=== PATIENT | male | born 2000 | race Caucasian/White ===

== ENCOUNTER 2020-08-20 12:35 | Outpatient (REF) | payer OTHER, SELFPAY | END 2020-08-20 12:36 | disposition home or self-care (01) | LOC: HO.LAB 12:35 | PROVIDERS: PCP Nurse Practitioner Pediatrics; Visit Provider Internal Medicine | DX: Z20.828 Contact with and (suspected) exposure to other viral communicable diseases (principal) | CPT/HCPCS: C9803; U0003 ==

== ENCOUNTER 2020-08-27 15:21 | Outpatient (REF) | payer OTHER, SELFPAY | END 2020-08-27 15:22 | disposition home or self-care (01) | LOC: HO.LAB 15:21 | PROVIDERS: PCP Nurse Practitioner Pediatrics; Visit Provider Internal Medicine | DX: Z20.828 Contact with and (suspected) exposure to other viral communicable diseases (principal) | CPT/HCPCS: 36415; C9803; U0003 ==

== ENCOUNTER 2022-08-08 18:55 | Emergency (ER) | payer OTHER, SELFPAY ==
--- NOTE | ~2022-08-08 | XR_ITS ---
EXAMINATION: CHEST 2 VIEWS CLINICAL INFORMATION: sob/dizziness . COMPARISON: No recent pertinent prior studies are available for comparison. TECHNIQUE: PA and lateral views of the chest obtained. FINDINGS: The lungs are well expanded. No focal infiltrate, effusion, edema, or pneumothorax. Cardiac and mediastinal silhouettes are within normal limits for technique. No acute bony abnormality seen XR/XR chest 2V IMPRESSION: No evidence of acute disease
[2022-08-08 19:05] VITALS: BP 157/96; PULSE 110; RESP 18; TEMP 37.3; O2SAT 100; BMI 27.5
--- NOTE | 2022-08-08 19:06 | ED.SOB ---
HPI - SOB/Dyspnea General Chief Complaint: Dyspnea <MORE Gaming - Last Filed: 08/08/22 19:10> Stated Complaint: difficulty breathing <MORE Gaming - Last Filed: 08/08/22 19:10> Time Seen by Provider: 08/08/22 19:24 <MORE Gaming - Last Filed: 08/08/22 19:10> Source: patient <MORE De La Cruz Last Filed: 08/08/22 21:47> Mode of arrival: ambulatory <MORE De La Cruz - Last Filed: 08/08/22 21:47> Limitations: no limitations <MORE De La Cruz - Last Filed: 08/08/22 21:47> History of Present Illness HPI Narrative: Patient is a 21 year old assigned male at with a history of asthma presenting to the emergency department today with shortness of breathe and dizziness. Patient states that since yesterday, he has felt generally unwell with dizziness and shortness of breath. Patient denies any lightheadedness, abdominal pain, nausea, vomiting, fever, chills, blurry vision, double vision, loss of vision, chest pain, back pain, night sweats, pain with urination, increased urinary frequency, increased urinary urgency, blood in his urine or stool, syncope or a near syncopal episode, recent trauma or falls, bowel incontinence, bladder incontinence, bowel retention, bladder retention, or any other complaints at this time. <MORE De La Cruz - Last Filed: 08/08/22 21:47> MD elicited complaint: shortness of breath <MORE De La Cruz - Last Filed: 08/08/22 21:47> Pertinent past history: asthma <MORE De La Cruz - Last Filed: 08/08/22 21:47> Onset (ago): day(s) (1) <MORE De La Cruz - Last Filed: 08/08/22 21:47> Severity: mild <MORE De La Cruz Last Filed: 08/08/22 21:47> Exacerbating factors: nothing <MORE De La Cruz Last Filed: 08/08/22 21:47> Relieving factors: nothing <MORE De La Cruz - Last Filed: 08/08/22 21:47> Known history of: asthma <MORE De La Cruz Last Filed: 08/08/22 21:47> Associated symptoms: dizziness <MORE De La Cruz Last Filed: 08/08/22 21:47> Treatment prior to arrival: none <MORE De La Cruz Last Filed: 08/08/22 21:47> Related Data Home Medications: Previous Rx's Medication Instructions Recorded doxycycline hyclate 100 mg tablet 100 mg PO BID 7 days #14 tabs 08/08/22 prednisone 20 mg tablet 20 mg PO DAILY 7 days #7 tabs 08/08/22 <MORE Gaming Last Filed: 08/08/22 19:10> Allergies/Adverse Reactions: Allergies Allergy/AdvReac Type Severity Reaction Status Date / Time No Known Allergies Allergy Unverified 05/09/20 19:01 [No Known Allergies*] <MORE Gaming - Last Filed: 08/08/22 19:10> Review of Systems Constitutional: Constitutional: Reports no additional constitutional complaints, Denies chills, Denies fever(s) and Denies night sweats <MORE De La Cruz Last Filed: 08/08/22 21:47> Eyes: Eyes: Reports no additional eye complaints, Denies blurry vision, Denies change in vision, Denies diplopia, Denies eye discharge, Denies loss of vision and Denies eye pain <MORE De La Cruz Last Filed: 08/08/22 21:47> ENT: Denies dizziness <MORE De La Cruz Last Filed: 08/08/22 21:47> Cardiovascular: Cardiovascular: Reports no additional cardiovascular complaints, Denies chest pain, Denies lightheadedness, Denies Loss of Consciousness and Denies dyspnea <MORE De La Cruz - Last Filed: 08/08/22 21:47> Respiratory: Respiratory: Reports no additional respiratory complaints and Denies dyspnea <MORE De La Cruz Last Filed: 08/08/22 21:47> Gastrointestinal: Gastrointestinal: Reports no additional gastrointestinal complaints, Denies abdominal pain, Denies melena, Denies hematochezia, Denies change in bowel habits and Denies change in stool character <MORE De La Cruz Last Filed: 08/08/22 21:47> Genitourinary: Genitourinary: Reports no additional male genitourinary complaints, Denies hematuria, Denies oliguria, Denies difficulty urinating, Denies dysuria, Denies urinary frequency, Denies urinary hesitancy, Denies urinary incontinence and Denies urinary urgency <MORE De La Cruz - Last Filed: 08/08/22 21:47> Musculoskeletal: Musculoskeletal: Reports no additional musculoskeletal complaints, Denies numbness and Denies tingling <MORE De La Cruz - Last Filed: 08/08/22 21:47> Neurologic: Denies dizziness, Denies loss of vision, Denies numbness and Denies tingling <MORE De La Cruz - Last Filed: 08/08/22 21:47> Psychiatric: Psychiatric: Reports no additional psychiatric complaints <MORE De La Cruz - Last Filed: 08/08/22 21:47> Endocrine: Endocrine: Reports no additional endocrine complaints <MORE De La Cruz - Last Filed: 08/08/22 21:47> Hematologic/Lymphatic: Hematologic/Lymphatic: Reports no additional hematologic/lymphatic complaints <MORE De La Cruz - Last Filed: 08/08/22 21:47> Allergic/Immunologic: Allergic/Immunologic: Reports no additional allergic/immunologic complaints <MORE De La Cruz - Last Filed: 08/08/22 21:47> [facility] Past Medical History Attestation statement: The following information was validated with the patient. <MORE De La Cruz - Last Filed: 08/08/22 21:47> Source: old records reviewed and nursing notes reviewed <MORE De La Cruz - Last Filed: 08/08/22 21:47> Social History Social History: Social History Advance Directives: No Advance Directives Information Provided: No <MORE Gaming - Last Filed: 08/08/22 19:10> Physical Exam Vital Signs: Vital Signs: Last Vital Signs Temp 99.1 F 08/08/22 19:05 Pulse 110 H 08/08/22 19:05 Resp 18 08/08/22 19:05 BP 157/96 H 08/08/22 19:05 Pulse Ox 100 08/08/22 19:05 O2 Del Method 08/08/22 19:05 BMI result Body Mass Index 27.5 <MORE Gaming - Last Filed: 08/08/22 19:10> Vital Signs: Last Vital Signs Temp 99.1 F 08/08/22 19:05 Pulse 110 H 08/08/22 19:05 Resp 18 08/08/22 19:05 BP 157/96 H 08/08/22 19:05 Pulse Ox 100 08/08/22 19:05 O2 Del Method 08/08/22 19:05 BMI result Body Mass Index 27.5 <MORE De La Cruz - Last Filed: 08/08/22 21:47> Const: General: cooperative, no acute distress, alert and awake <MORE De La Cruz - Last Filed: 08/08/22 21:47> Nutritional Appearance: well nourished <MORE De La Cruz - Last Filed: 08/08/22 21:47> Orientation/consciousness: patient oriented x3 <MORE De La Cruz - Last Filed: 08/08/22 21:47> Limitations: no limitations <MORE De La Cruz - Last Filed: 08/08/22 21:47> HEENT: Head: Yes normal to inspection and Yes atraumatic <MORE De La Cruz - Last Filed: 08/08/22 21:47> Ears: hearing grossly normal bilaterally and external ears normal <MORE De La Cruz - Last Filed: 08/08/22 21:47> General nose exam: Normal external nose present, no nasal discharge noted and no epistaxis <MORE De La Cruz - Last Filed: 08/08/22 21:47> Face and sinus: Yes normal facial exam, No abrasion and No laceration <MORE De La Cruz - Last Filed: 08/08/22 21:47> Mouth: Normal oral and palatal mucosa present, no drooling and no muffled voice <MORE De La Cruz - Last Filed: 08/08/22 21:47> Eyes: General: appearance normal, both eyes and all related structures <MORE De La Cruz - Last Filed: 08/08/22 21:47> Periorbital: periorbital findings normal <MORE De La Cruz - Last Filed: 08/08/22 21:47> Eyelids: Yes eyelids normal <Serena Giraldo PA - Last Filed: 08/08/22 21:47> Conjunctivae: conjunctivae normal <Serena Giraldo, PA - Last Filed: 08/08/22 21:47> Pupils: Equal, round and reactive pupils present <Serena Giraldo PA - Last Filed: 08/08/22 21:47> EOM: EOMs intact bilaterally <Serena Giraldo PA - Last Filed: 08/08/22 21:47> Neck: Neck: Yes normal visual inspection, Yes full ROM and Yes no lymphadenopathy <Serena Giraldo PA - Last Filed: 08/08/22 21:47> Chest: Chest palpation & inspection: normal inspection of the chest <Serena Giraldo PA - Last Filed: 08/08/22 21:47> Resp: Effort & Inspection: normal respiratory effort and able to speak in complete sentences <Serena Giraldo PA - Last Filed: 08/08/22 21:47> Auscultation: wheezes throughout <Serena Giraldo PA - Last Filed: 08/08/22 21:47> Cardio: Rate: tachycardic <Serena Giraldo PA - Last Filed: 08/08/22 21:47> Rhythm: regular rhythm <Serena Giraldo PA - Last Filed: 08/08/22 21:47> GI: Inspection: Yes normal to inspection <Serena Giraldo PA - Last Filed: 08/08/22 21:47> Palpation (GI): Soft to palpation, not firm, nontender and no guarding <Serena Giraldo PA - Last Filed: 08/08/22 21:47> Neuro: General: patient oriented x3 and moves all extremities <Serena Giraldo PA - Last Filed: 08/08/22 21:47> Cranial nerves: Yes Equal, round and reactive pupils present <Serena Giraldo PA - Last Filed: 08/08/22 21:47> Cognition (Neuro): normal cognition <Serena Giraldo PA - Last Filed: 08/08/22 21:47> Motor exam (neuro): 5/5 motor strength present throughout <Serena Giraldo PA - Last Filed: 08/08/22 21:47> Sensory Exam: Normal double simultaneous stimulation for sensation <MORE De La Cruz - Last Filed: 08/08/22 21:47> Coordination: [id number] test normal <MORE De La Cruz - Last Filed: 08/08/22 21:47> Extrem: General: Yes normal to inspection, Yes full ROM and Yes capillary refill normal <MORE De La Cruz - Last Filed: 08/08/22 21:47> Psych: Appearance: grossly normal <MORE De La Cruz - Last Filed: 08/08/22 21:47> Mental Status: mental status grossly normal <MORE De La Cruz - Last Filed: 08/08/22 21:47> Affect: normal affect <MORE De La Cruz - Last Filed: 08/08/22 21:47> Attitude: cooperative <MORE De La Cruz - Last Filed: 08/08/22 21:47> Thought process: Normal thought process present <MORE De La Cruz - Last Filed: 08/08/22 21:47> Thought content: Normal thought content present <MORE De La Cruz - Last Filed: 08/08/22 21:47> Insight: Good insight present (Psych) <MORE De La Cruz - Last Filed: 08/08/22 21:47> Course Course Course Narrative: RME-19:10PM - 21yoM c PMHx asthma is presenting to the ER with son at bedside who recently tested positive for RSV this patient is presenting today with sudden onset of shortness of breath/dizziness while he was at home making music no strenuous activity. Reports he was bending forward and developed this dizziness/shortness of breath. He denies any cough. He reports he has never had this in the past. He denies any recent immobilization/surgery/history of DVT or PE/any estrogen uses/hypercoagulation disorder, lower extremity edema or calf tenderness or any other symptoms complaints or concerns at this time. Plan: Labs, EKG, chest x-ray, COVID/RSV/flu swab ordered at this time. Patient is stable to go to the waiting room to be evaluated in the ED. <MORE Gaming - Last Filed: 08/08/22 19:10> Medications Administered Discontinued Medications Generic Name Dose Route Start Last Admin Trade Name Jonahq PRN Reason Stop Dose Admin Doxycycline Monohydrate 100 mg 08/08/22 21:00 08/08/22 21:24 Doxycycline Monohydrate 100 Mg Capsule PO 08/08/22 21:01 100 mg ONCE ONE Administration Prednisone 20 mg 08/08/22 21:00 08/08/22 21:25 Prednisone 20 Mg Tablet PO 08/08/22 21:01 20 mg ONCE ONE Administration <MORE Gaming - Last Filed: 08/08/22 19:10> Medications Administered Discontinued Medications Generic Name Dose Route Start Last Admin Trade Name Freq PRN Reason Stop Dose Admin Doxycycline Monohydrate 100 mg 08/08/22 21:00 08/08/22 21:24 Doxycycline Monohydrate 100 Mg Capsule PO 08/08/22 21:01 100 mg ONCE ONE Administration Prednisone 20 mg 08/08/22 21:00 08/08/22 21:25 Prednisone 20 Mg Tablet PO 08/08/22 21:01 20 mg ONCE ONE Administration <MORE De La Cruz - Last Filed: 08/08/22 21:47> Medical Decision Making Medical Decision Making MDM Narrative: Patient is a 21 year old assigned male at with a history of asthma presenting to the emergency department today with shortness of breath and intermittent dizziness. Patient's physical exam showed diffuse wheezing and mild tachycardia but was otherwise unremarkable. Patient's blood work was unremarkable. Patient's EKG showed sinus tachycardia. Patient's chest x-ray showed no acute process. I explained my physical exam findings as well as all test results to the patient. I answered all questions asked by the patient. I stressed the importance of the patient taking his medication as prescribed. I stressed the importance of the patient following up with his primary care provider. I stressed the importance of the patient returning to the emergency department immediately if his symptoms were to worsen or if he were to develop any dizziness, shortness of breath, difficulty breathing, chest pain, blurry vision, loss of vision, nausea, vomiting, abdominal pain, fever, chills, back pain, or any other complaints. Patient verbalized agreement and understanding with this treatment plan and discharge. <MORE De La Cruz - Last Filed: 08/08/22 21:47> Differential Diagnosis Differential Diagnoses: The differential diagnosis associated with the presentation includes <MORE De La Cruz - Last Filed: 08/08/22 21:47> Upper respiratory infection. <MORE De La Cruz - Last Filed: 08/08/22 21:47> Lab Data MDM Lab Attestation statement: I reviewed the patient's lab results. <MORE De La Cruz - Last Filed: 08/08/22 21:47> Result Diagrams: : 08/08/22 19:22 08/08/22 19:22 <MORE Gaming - Last Filed: 08/08/22 19:10> Labs: Lab Results 08/08/22 08/08/22 08/08/22 Range/Units 19:22 19:22 19:22 WBC 8.9 (4.8-10.8) X10*3/uL RBC 4.72 (4.60-5.80) X10*6/uL Hgb 14.1 (14.0-18.0) g/dl Hct 41.0 L (42.0-52.0) % MCV 86.9 (80.0-98.0) fL MCH 29.9 (27.0-33.0) pg MCHC 34.4 (31.0-36.0) g/dl RDW 11.2 (11.0-16.0) % Plt Count 350 (160-400) X10*3/uL MPV 9.7 (9.4-12.4) fL Immature Gran % (Auto) 0.9 H (0.0-0.4) % Neut % (Auto) 54.2 (45-73) % Lymph % (Auto) 31.0 (20-40) % [place] % (Auto) 10.0 (2-11) % Eos % (Auto) 3.4 (0-4) % Baso % (Auto) 0.5 (0-2) % Lymph # (Auto) 2.8 (1.2-4.9) X10*3/uL [place] # (Auto) 0.9 (0.1-1.2) X10*3/uL Eos # (Auto) 0.3 (0.0-0.4) X10*3/uL Baso # (Auto) 0.0 (0.0-0.2) X10*3/uL Abs Immat Gran (auto) 0.08 H (0.00-0.03) X10*3/uL Absolute Neuts (auto) 4.8 (2.0-8.3) x10*3/uL Absolute Nucleated RBC 0.000 (0.0-0.012) X10*3/uL Nucleated RBC % (auto) 0.0 (0.0-0.2) /100WBC PT 12.0 (10.0-13.1) SEC INR 1.0 (0.9-1.1) Sodium 138 (135-145) mmol/L Potassium 4.2 (3.3-5.1) mmol/L Chloride 104 (96-108) mmol/L Carbon Dioxide 26 (22-29) mmol/L Anion Gap 12 (12-20) BUN 12 (9-16) mg/dL Creatinine 1.02 (0.5-1.4) mg/dL Estim Creat Clear Calc 136.9 Estimated GFR > 60 Random Glucose 99 (60-115) mg/dL Calcium 9.6 (8.4-10.2) mg/dL Magnesium 1.7 (1.6-2.6) mg/dL Total Bilirubin 0.4 (0.0-1.0) mg/dL AST 19 (5-37) U/L ALT 33 (0-40) U/L Alkaline Phosphatase 89 (39-117) U/L Total Protein 7.4 (6.5-8.0) g/dL Albumin 4.7 (3.5-5.0) g/dL Influenza Type A (PCR) (Negative) Influenza Type B (PCR) (Negative) RSV RNA Qual (PCR) (Negative) SARS-CoV-2 RNA (RT-PCR) (Negative) 08/08/22 Range/Units 19:22 WBC (4.8-10.8) X10*3/uL RBC (4.60-5.80) X10*6/uL Hgb (14.0-18.0) g/dl Hct (42.0-52.0) % MCV (80.0-98.0) fL MCH (27.0-33.0) pg MCHC (31.0-36.0) g/dl RDW (11.0-16.0) % Plt Count (160-400) X10*3/uL MPV (9.4-12.4) fL Immature Gran % (Auto) (0.0-0.4) % Neut % (Auto) (45-73) % Lymph % (Auto) (20-40) % [place] % (Auto) (2-11) % Eos % (Auto) (0-4) % Baso % (Auto) (0-2) % Lymph # (Auto) (1.2-4.9) X10*3/uL [place] # (Auto) (0.1-1.2) X10*3/uL Eos # (Auto) (0.0-0.4) X10*3/uL Baso # (Auto) (0.0-0.2) X10*3/uL Abs Immat Gran (auto) (0.00-0.03) X10*3/uL Absolute Neuts (auto) (2.0-8.3) x10*3/uL Absolute Nucleated RBC (0.0-0.012) X10*3/uL Nucleated RBC % (auto) (0.0-0.2) /100WBC PT (10.0-13.1) SEC INR (0.9-1.1) Sodium (135-145) mmol/L Potassium (3.3-5.1) mmol/L Chloride (96-108) mmol/L Carbon Dioxide (22-29) mmol/L Anion Gap (12-20) BUN (9-16) mg/dL Creatinine (0.5-1.4) mg/dL Estim Creat Clear Calc Estimated GFR Random Glucose (60-115) mg/dL Calcium (8.4-10.2) mg/dL Magnesium (1.6-2.6) mg/dL Total Bilirubin (0.0-1.0) mg/dL AST (5-37) U/L ALT (0-40) U/L Alkaline Phosphatase (39-117) U/L Total Protein (6.5-8.0) g/dL Albumin (3.5-5.0) g/dL Influenza Type A (PCR) NEGATIVE (Negative) Influenza Type B (PCR) NEGATIVE (Negative) RSV RNA Qual (PCR) NEGATIVE (Negative) SARS-CoV-2 RNA (RT-PCR) NEGATIVE (Negative) <MORE Gaming - Last Filed: 08/08/22 19:10> Lab Results 08/08/22 08/08/22 08/08/22 Range/Units 19:22 19:22 19:22 WBC 8.9 (4.8-10.8) X10*3/uL RBC 4.72 (4.60-5.80) X10*6/uL Hgb 14.1 (14.0-18.0) g/dl Hct 41.0 L (42.0-52.0) % MCV 86.9 (80.0-98.0) fL MCH 29.9 (27.0-33.0) pg MCHC 34.4 (31.0-36.0) g/dl RDW 11.2 (11.0-16.0) % Plt Count 350 (160-400) X10*3/uL MPV 9.7 (9.4-12.4) fL Immature Gran % (Auto) 0.9 H (0.0-0.4) % Neut % (Auto) 54.2 (45-73) % Lymph % (Auto) 31.0 (20-40) % [place] % (Auto) 10.0 (2-11) % Eos % (Auto) 3.4 (0-4) % Baso % (Auto) 0.5 (0-2) % Lymph # (Auto) 2.8 (1.2-4.9) X10*3/uL [place] # (Auto) 0.9 (0.1-1.2) X10*3/uL Eos # (Auto) 0.3 (0.0-0.4) X10*3/uL Baso # (Auto) 0.0 (0.0-0.2) X10*3/uL Abs Immat Gran (auto) 0.08 H (0.00-0.03) X10*3/uL Absolute Neuts (auto) 4.8 (2.0-8.3) x10*3/uL Absolute Nucleated RBC 0.000 (0.0-0.012) X10*3/uL Nucleated RBC % (auto) 0.0 (0.0-0.2) /100WBC PT 12.0 (10.0-13.1) SEC INR 1.0 (0.9-1.1) Sodium 138 (135-145) mmol/L Potassium 4.2 (3.3-5.1) mmol/L Chloride 104 (96-108) mmol/L Carbon Dioxide 26 (22-29) mmol/L Anion Gap 12 (12-20) BUN 12 (9-16) mg/dL Creatinine 1.02 (0.5-1.4) mg/dL Estim Creat Clear Calc 136.9 Estimated GFR > 60 Random Glucose 99 (60-115) mg/dL Calcium 9.6 (8.4-10.2) mg/dL Magnesium 1.7 (1.6-2.6) mg/dL Total Bilirubin 0.4 (0.0-1.0) mg/dL AST 19 (5-37) U/L ALT 33 (0-40) U/L Alkaline Phosphatase 89 (39-117) U/L Total Protein 7.4 (6.5-8.0) g/dL Albumin 4.7 (3.5-5.0) g/dL Influenza Type A (PCR) (Negative) Influenza Type B (PCR) (Negative) RSV RNA Qual (PCR) (Negative) SARS-CoV-2 RNA (RT-PCR) (Negative) 08/08/22 Range/Units 19:22 WBC (4.8-10.8) X10*3/uL RBC (4.60-5.80) X10*6/uL Hgb (14.0-18.0) g/dl Hct (42.0-52.0) % MCV (80.0-98.0) fL MCH (27.0-33.0) pg MCHC (31.0-36.0) g/dl RDW (11.0-16.0) % Plt Count (160-400) X10*3/uL MPV (9.4-12.4) fL Immature Gran % (Auto) (0.0-0.4) % Neut % (Auto) (45-73) % Lymph % (Auto) (20-40) % [place] % (Auto) (2-11) % Eos % (Auto) (0-4) % Baso % (Auto) (0-2) % Lymph # (Auto) (1.2-4.9) X10*3/uL [place] # (Auto) (0.1-1.2) X10*3/uL Eos # (Auto) (0.0-0.4) X10*3/uL Baso # (Auto) (0.0-0.2) X10*3/uL Abs Immat Gran (auto) (0.00-0.03) X10*3/uL Absolute Neuts (auto) (2.0-8.3) x10*3/uL Absolute Nucleated RBC (0.0-0.012) X10*3/uL Nucleated RBC % (auto) (0.0-0.2) /100WBC PT (10.0-13.1) SEC INR (0.9-1.1) Sodium (135-145) mmol/L Potassium (3.3-5.1) mmol/L Chloride (96-108) mmol/L Carbon Dioxide (22-29) mmol/L Anion Gap (12-20) BUN (9-16) mg/dL Creatinine (0.5-1.4) mg/dL Estim Creat Clear Calc Estimated GFR Random Glucose (60-115) mg/dL Calcium (8.4-10.2) mg/dL Magnesium (1.6-2.6) mg/dL Total Bilirubin (0.0-1.0) mg/dL AST (5-37) U/L ALT (0-40) U/L Alkaline Phosphatase (39-117) U/L Total Protein (6.5-8.0) g/dL Albumin (3.5-5.0) g/dL Influenza Type A (PCR) NEGATIVE (Negative) Influenza Type B (PCR) NEGATIVE (Negative) RSV RNA Qual (PCR) NEGATIVE (Negative) SARS-CoV-2 RNA (RT-PCR) NEGATIVE (Negative) <MORE De La Cruz - Last Filed: 08/08/22 21:47> Independent Interpretation I performed an independent interpretation of an: EKG <MORE De La Cruz - Last Filed: 08/08/22 21:47> Interpretation: Vent. Rate: 103 BPM ? ? Atrial Rate: 103 BPM P-R Int: 134 ms? QRS Dur: 090 ms QT Int: 320 ms ? ? ? P-R-T Axes: 051 071 042 degrees QTc Int: 419 ms ? Sinus tachycardia Otherwise normal ECG No previous ECGs available DD/ 12 <MORE De La Cruz - Last Filed: 08/08/22 21:47> Radiology Impression Discussion of test interpretation with radiology: I have reviewed the radiologist's reading. <MORE De La Cruz - Last Filed: 08/08/22 21:47> Radiologist Impression: EXAMINATION: CHEST 2 VIEWS CLINICAL INFORMATION: sob/dizziness COMPARISON: No recent pertinent prior studies are available for comparison. TECHNIQUE: PA and lateral views of the chest obtained.? FINDINGS: The lungs are well expanded. No focal infiltrate, effusion, edema, or pneumothorax. Cardiac and mediastinal silhouettes are within normal limits for technique. No acute bony abnormality seen XR/XR chest 2V IMPRESSION: No evidence of acute disease Dictated By: Chapo Whiting MD Signed By: Electronically signed by Chapo Whiting MD 08/08/222005 <MORE De La Cruz - Last Filed: 08/08/22 21:47> Discharge Plan Discharge Clinical Impression: Upper respiratory disease <MORE Gaming - Last Filed: 08/08/22 19:10> Patient Disposition: Home, Self-Care <MORE Gaming - Last Filed: 08/08/22 19:10> Instructions: Upper Respiratory Infection (ED) <MORE Gaming - Last Filed: 08/08/22 19:10> Additional Instructions: Follow up with your primary care provider. Return to the emergency department immediately if your symptoms worsen or if you develop any dizziness, shortness of breath, difficulty breathing, chest pain, blurry vision, loss of vision, nausea, vomiting, abdominal pain, fever, chills, back pain, or any other complaints. <MORE Gaming - Last Filed: 08/08/22 19:10> Prescriptions: New prednisone 20 mg tablet 20 mg PO DAILY 7 Days Qty: 7 0RF doxycycline hyclate 100 mg tablet 100 mg PO BID 7 Days Qty: 14 0RF <MORE Gaming - Last Filed: 08/08/22 19:10> Referrals: [facility] [place] Family [facility] [Provider Group] (Call to establish and follow up with a primary care provider. If you already have a primary care provider, please follow up with them. ) [facility] [facility] [Provider Group] (Call to establish and follow up with a primary care provider. If you already have a primary care provider, please follow up with them. ) [facility] [Provider Group] (Call to establish and follow up with a primary care provider. If you already have a primary care provider, please follow up with them. ) <MORE Gaming - Last Filed: 08/08/22 19:10> Stand Alone Forms: Work/School Release <MORE Gaming - Last Filed: 08/08/22 19:10> Interventions: ED Discharge Assessment Last Done: 08/08/22 21:36 <MORE Gaming - Last Filed: 08/08/22 19:10> Discharge Date/Time: 08/08/22 21:37 <MORE Gaming - Last Filed: 08/08/22 19:10> Print Language: Bangladeshi <MORE Gaming - Last Filed: 08/08/22 19:10>
--- NOTE | 2022-08-08 19:07 | ECG_ITS ---
Test Reason : SOB Blood Pressure : / mmHG Vent. Rate : 103 BPM Atrial Rate : 103 BPM P-R Int : 134 ms QRS Dur : 090 ms QT Int : 320 ms P-R-T Axes : 051 071 042 degrees QTc Int : 419 ms Sinus tachycardia Otherwise normal ECG No previous ECGs available Referred By: Annette Looney Electronically Signed By:SUJIT DURAN
--- OUTSIDE RECORDS SUMMARY | 2022-08-08 19:22 | XMS_ITS | Continuity of Care Document ---
:2000 Author Organization [facility] Address [address] [place] [id number] Care Team Providers Name Role Phone Annette ENAMORADO, Virginia Fletcher Primary Care Phys[id number] Date(s): 10/01/21 - 10/01/[address] [address]- Discharge Disposition: A-D/C Home Attending Physician: Virginia Marks MD Admitting Physician: Virginia Marks MD Referring Physician: Not on Staff, Referring MD Allergies, Adverse Reactions, Alerts No Known Allergies Medications Boots See Instructions, Maintenance, airselect, standard,large Ref: [id number], 11/29/15 11:28:28, Compound Start Date: 11/29/15 Status: Ordereddiclofenac sodium 50 mg oral delayed release tablet 1 tablet = 50 mg, By Mouth, 2 times a day, # 60 tablet, 2 Refills, Maintenance, 11/29/15 11:26:39 Start Date: 11/29/15 Status: OrderedQvar 40 mcg/inh inhalation aerosol with adapter 2 puffs, Inhalation, 2 times a day, # 1 each, 2 Refills, Maintenance, 05/11/14 14:31:31, 2 puffs Inhalation 2 times a day Start Date: 05/11/14 Status: Ordered Vital Signs Most recent to oldest [Reference Range]: 1 2 Height 191 cm 191 cm (10/01/21 8:32 AM) (10/01/21 7:41 AM) Weight 95.4 kg 95.4 kg (10/01/21 8:32 AM) (10/01/21 7:41 AM) Oxygen Saturation [94-100 %] 97 % 99 % (10/01/21 7:41 AM) (10/01/21 7:39 AM) Pulse Rate [55-90 bpm] 83 bpm 101 bpm (10/01/21 7:41 AM) *H* (10/01/21 7:39 AM) Body Mass Index [18.5-24.99] 26.15 *H* (10/01/21 7:41 AM) Blood Pressure [90-138/55-84 mm Hg] 149/73 mm Hg *H* (10/01/21 7:41 AM) Respiratory Rate [16-30 br/min] 18 br/min 18 br/mi n (10/01/21 7:41 AM) (10/01/21 7:39 AM) Temperature [96.8-100.4 DegF] 98.6 DegF (10/01/21 7:41 AM) Mode of Delivery (Oxygen) Room air Room air (10/01/21 7:41 AM) (10/01/21 7:39 AM) Blood pressure sites Arm, right (10/01/21 7:41 AM) Temperature Route Oral (10/01/21 7:41 AM) Dry Weight 95.4 kg 95.4 kg (10/01/21 8:32 AM) (10/01/21 7:41 AM) Weight Obtained Via Standing scale (10/01/21 7:41 AM) Dry Weight Obtained Via Standing scale (10/01/21 7:41 AM) Social History Social History Type Response Smoking Status Never smoker entered on: 11/29/15 Sex
[2022-08-08 19:29] LABS: MANUAL DIFF FLAG NO
[2022-08-08 19:52] LABS: Alanine Aminotransferase 33 U/L (0-40); Albumin Level 4.7 g/dL (3.5-5.0); Alkaline Phosphatase 89 U/L (39-117); Anion Gap 12 (12-20); Aspartate Amino Transferase 19 U/L (5-37); Bilirubin Total 0.4 mg/dL (0.0-1.0); Blood Urea Nitrogen 12 mg/dL (9-16); Calcium 9.6 mg/dL (8.4-10.2); Carbon Dioxide 26 mmol/L (22-29); Chloride 104 mmol/L (96-108); Creatinine Clr Calc Pharmacy 136.9; Estimated Glomerular Filt Rate > 60; Glucose Random 99 mg/dL (60-115); Magnesium 1.7 mg/dL (1.6-2.6); Potassium 4.2 mmol/L (3.3-5.1); Sodium 138 mmol/L (135-145); Total Protein 7.4 g/dL (6.5-8.0)
[2022-08-08 19:54] LABS: Basophils Percent Auto 0.5 % (0-2); Eosinophils Absolute Auto 0.3 X10*3/uL (0.0-0.4); Eosinophils Percent Auto 3.4 % (0-4); Hemoglobin 14.1 g/dl (14.0-18.0); Imm Gran Abs Auto 0.08 X10*3/uL (0.00-0.03); Imm Gran Pct Auto 0.9 % (0.0-0.4); Lymphocytes Absolute Auto 2.8 X10*3/uL (1.2-4.9); Mean Corpuscular HGB Conc 34.4 g/dl (31.0-36.0); Mean Corpuscular Hemoglobin 29.9 pg (27.0-33.0); Mean Corpuscular Volume 86.9 fL (80.0-98.0); Mean Platelet Volume 9.7 fL (9.4-12.4); Monocytes Absolute Auto 0.9 X10*3/uL (0.1-1.2); Neutrophils Absolute Auto 4.8 x10*3/uL (2.0-8.3); Neutrophils Percent Auto 54.2 % (45-73); Platelet Count 350 X10*3/uL (160-400); Red Blood Count 4.72 X10*6/uL (4.60-5.80); Red Cell Distribution Width 11.2 % (11.0-16.0); White Blood Count 8.9 X10*3/uL (4.8-10.8)
[2022-08-08 20:06] LABS: Influenza A PCR NEGATIVE (Negative); Influenza B PCR NEGATIVE (Negative); Resp Syncy Virus RNA Qual PCR NEGATIVE (Negative); SARS COV2 PCR INHOUSE NEGATIVE (Negative)
[2022-08-08] MEDS: Doxycycline Monohydrate 100 MG CAPSULE PO (21:24)
[2022-08-08] MEDS: predniSONE 20 MG TABLET PO (21:25)
== END 2022-08-08 21:37 | disposition home or self-care (01) ==
PROVIDERS: Physician Assistant Medical; Emergency Provider Emergency Medicine; PCP Nurse Practitioner Pediatrics
DX: J06.9 Acute upper respiratory infection, unspecified (principal); Z20.822 Contact with and (suspected) exposure to COVID-19
CPT/HCPCS: 0241U; 36415; 71046; 80053; 83735; 85025; 85610; 93005; 99283

== ENCOUNTER → 2022-09-30 15:04 | Outpatient (BNVA) | payer OTHER, SELFPAY | PROVIDERS: PCP Nurse Practitioner Pediatrics; Referring Provider Nurse Practitioner Pediatrics; Visit Provider Internal Medicine | DX: R03.0 Elevated blood-pressure reading, without diagnosis of hypertension (principal); R07.2 Precordial pain | CPT/HCPCS: 99202 ==

== ENCOUNTER → 2022-10-30 15:00 | Outpatient (REF) | payer OTHER, SELFPAY ==
--- NOTE | 2022-10-30 15:03 | CA_ITS ---
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 The calculated ejection fraction is 54% by biplane method. - No obvious valvular pathology seen on this study. Findings Left Ventricle Normal left ventricular cavity size. There is normal left ventricular wall thickness. The left ventricular systolic function is low normal. The calculated ejection fraction is 54% by biplane method. There is no evidence of regional wall motion abnormalities. Diastolic function is normal for age. Right Ventricle Normal right ventricular cavity size and systolic function. Atria Both atria are normal in size. Aortic Valve There is a normal trileaflet aortic valve. There is no aortic valve stenosis. There is no aortic valve regurgitation. Mitral Valve The mitral valve appears normal. There is no mitral valve regurgitation. There is no mitral valve stenosis. Pulmonic Valve The pulmonic valve is likely normal. Tricuspid Valve Normal tricuspid valve structure. There is trace tricuspid valve regurgitation. Tricuspid regurgitation envelope is inadequate for calculation of right ventricular systolic pressure. Great Vessels The asc aorta is normal in size. Venous The inferior vena cava is normal in size and collapses greater than 50% with inspiration. Pericardium/Pleural There is no evidence of pericardial effusion. Prior Study Comparison No prior study available for comparison. Recommendations, Care & Conclusions No obvious valvular pathology seen on this study. Measurements 2D Linear Measurements IVSd: 0.94 0.6-0.9/0.6-1.0 cm LVIDd: 4.67 3.9-5.3/4.2-5.9 cm LVIDd Index: 2.02 2.4-3.2/2.2-3.1 cm/m2 LVIDs: 2.90 2.0-3.6 cm LVPWd: 0.86 0.7-1.1 cm LA Diam: 2.80 2.7-3.8/3.0-4.0 cm LAIDs Index: 1.21 1.5-2.3 cm/m2 LV Mass: 176.27 67-162/88-224 g LV Mass Index: 76.31 43-95/49-115 g/m2 LVOT Diam: 2.10 3.0+(-)1.3 cm 2D Systolic Function EF 4C: 55.00 >55% EF 2C: 52.00 >55% EF BiP: 54.00 >55% Mitral Valve MV Pk E: 0.89 MV PK A: 0.49 MV Decel Time: 164.00 E/A: 1.80 E'Lateral: 17.10 E'Medial: 11.60 E/E' Med: 7.70 E/E' Lat: 5.20 PHT: 48.00 MVA PHT: 4.58 Decel [place]: 5.44 Aortic Valve AoV Pk Kit: 1.25 AoV Mn Kit: 0.82 AoV VTI: 0.21 AoV Pk Grad: 6.00 Aov Mn Grad: 3.00 DEREK Cont.VTI: 2.66 LVOT LVOT Pk Kit: 0.99 LVOT Mn Kit: 0.61 LVOT VTI: 0.16 LVOT Pk Grad: 4.00 LVOT Mn Grad: 2.00 LVOT Diam: 2.10 LVOT Area: 3.46 Diastolic Function MV Pk E: 0.89 MV Pk A: 0.49 E/A: 1.80 E'Medial: 11.60 E/E' Med: 7.70 E' Laterial: 17.10 E/E' Lat: 5.20 Right Ventricle TAPSE (mm): 23.30 TVS' Kit: 12.90 Tricuspid Valve TR Pk Kit: 2.26 TR Pk Grad: 20.00 Great Vessels Aorta Sinus of Valsalva: 2.70 2.0-3.5 cm Ao Asc: 2.50 2.1-3.4 cm Ao Arch: 3.10 Pulmonary Valve PV Pk Kit: 1.09 Peak PV Grad: 5.00 Updated in Other Vendor System with Status of Final Louie Whitlock MD electronically signed on 10/31/2022 1:00:14 PM with status of Final
== END ==
LOC: HO.CARD 15:00
PROVIDERS: Visit Provider Internal Medicine
DX: R07.2 Precordial pain (principal); R03.0 Elevated blood-pressure reading, without diagnosis of hypertension; I70.1 Atherosclerosis of renal artery
CPT/HCPCS: 93306

== ENCOUNTER 2022-11-02 09:32 | Outpatient (REF) | payer OTHER, SELFPAY ==
--- NOTE | ~2022-11-02 | US_ITS ---
EXAMINATION: ULTRASOUND RENAL WITH DOPPLER CLINICAL INFORMATION: Renal artery atherosclerosis. COMPARISON: None. TECHNIQUE: Real-time grayscale, color Doppler, and duplex Doppler evaluation of the kidneys and renal vasculature was performed. FINDINGS: RENAL MEASUREMENTS: Right: 11.0 x 4.0 x 6.4 cm (Sag x AP x TV) Left: 11.0 x 4.8 x 5.7 cm (Sag x AP x TV) The renal parenchyma appears normal. No hydronephrosis or nephrolithiasis. DOPPLER INTERROGATION: Aorta: 132 cm/sec Right Main Renal Artery: Proximal: 106 cm/sec Mid: 190 cm/sec Distal: 131 cm/sec Left Main Renal Artery: Proximal: 119 cm/sec Mid: 136 cm/sec Distal: 102 cm/sec Segmental resistive indices are less than 0.8 bilaterally. The renal veins are patent. US/US renal doppler IMPRESSION: Elevated velocity in the mid right renal artery may represent a renal artery stenosis, possibly fibromuscular dysplasia in this location. Recommend further evaluation with MRA of the abdomen without and with contrast.
--- NOTE | ~2022-11-02 | US_ITS ---
EXAMINATION: ULTRASOUND RENAL WITH DOPPLER CLINICAL INFORMATION: Renal artery atherosclerosis. COMPARISON: None. TECHNIQUE: Real-time grayscale, color Doppler, and duplex Doppler evaluation of the kidneys and renal vasculature was performed. FINDINGS: RENAL MEASUREMENTS: Right: 11.0 x 4.0 x 6.4 cm (Sag x AP x TV) Left: 11.0 x 4.8 x 5.7 cm (Sag x AP x TV) The renal parenchyma appears normal. No hydronephrosis or nephrolithiasis. DOPPLER INTERROGATION: Aorta: 132 cm/sec Right Main Renal Artery: Proximal: 106 cm/sec Mid: 190 cm/sec Distal: 131 cm/sec Left Main Renal Artery: Proximal: 119 cm/sec Mid: 136 cm/sec Distal: 102 cm/sec Segmental resistive indices are less than 0.8 bilaterally. The renal veins are patent. US/US renal BI IMPRESSION: Elevated velocity in the mid right renal artery may represent a renal artery stenosis, possibly fibromuscular dysplasia in this location. Recommend further evaluation with MRA of the abdomen without and with contrast.
== END 2022-11-02 09:33 | disposition home or self-care (01) ==
LOC: HO.HMGCX 09:32
PROVIDERS: PCP Nurse Practitioner Pediatrics; Visit Provider Internal Medicine
DX: I70.1 Atherosclerosis of renal artery (principal)
CPT/HCPCS: 76775; 93975

== ENCOUNTER 2022-11-27 09:36 | Outpatient (REF) | payer MEDICAID, SELFPAY | END 2022-11-27 09:37 | disposition home or self-care (01) | LOC: HO.MRI 09:36 | PROVIDERS: PCP Nurse Practitioner Pediatrics; Visit Provider Internal Medicine | DX: Z13.89 Encounter for screening for other disorder (principal) ==

== ENCOUNTER 2023-08-24 23:59 | Emergency (ER) | payer OTHER, SELFPAY ==
[2023-08-25 00:15] VITALS: BP 148/95; PULSE 98; RESP 20; TEMP 36.4; O2SAT 98; BMI 28.1
[2023-08-25 04:05] VITALS: BP 129/83; PULSE 83; RESP 16; TEMP 37; O2SAT 97
[2023-08-25] MEDS: Fluorescein Sodium STRIP 1 STRIP EYE-LEFT (05:17)
[2023-08-25] MEDS: Tetracaine HCl/PF 0.5% Oph Sol 4 ML DROPS 1 DROP EYE-LEFT (05:17)
--- NOTE | 2023-08-25 05:44 | ED_ITS ---
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 Related Data Home Medications Medication Instructions Recorded Confirmed albuterol sulfate 90 mcg/actuation 0 mcg inhalation 09/30/22 09/30/22 aerosol inhaler (Ventolin HFA) fluticasone propionate 110 2 puff inhalation BID 09/30/22 09/30/22 mcg/actuation HFA aerosol inhaler (Flovent HFA) fluticasone propionate 50 spray intranasal 09/30/22 09/30/22 mcg/actuation nasal spray,suspension inhalational spacing device #1 ea 09/30/22 09/30/22 (Familia Leigha C spacer) Previous Rx's Medication Instructions Recorded prednisone 20 mg tablet 20 mg PO DAILY 7 days #7 tabs 08/08/22 erythromycin 5 mg/gram (0.5 %) eye 0.5 inch ophthalmic (eye) QID 7 08/25/23 ointment days #3.5 grams Allergies Allergy/AdvReac Type Severity Reaction Status Date / Time No Known Allergies Allergy Verified 09/30/22 15:08 [No Known Allergies*] Review of Systems Review of Systems: Pertinent positives and negatives as stated in HPI PMFSH Past Medical History Source: nursing notes reviewed Onset Date is defined in the Problem List Problems that require an onset date and time if occurred within 24 hrs of arrival to the ED Aortic Dissection and Rupture; Neurologic impairment; Cardiopulmonary Arrest; Endotracheal Intubation; Insertion or Replacement of Mechanical Circulatory Assist Device Family History Family History Mother No problems noted. Father Hypertension Social History Social History Alcohol intake: current Alcohol intake frequency: holidays/special occasions only Patient Tobacco Use Status: Current everyday Tobacco user Tobacco use type: Cigarette Cigarettes Per Day: 1 Advance Directives: No Advance Directives Information Provided: Yes Physical Exam Vital Signs: Vital Signs: Last Vital Signs Temp 98.6 F 08/25/23 04:05 Pulse 83 08/25/23 04:05 Resp 16 08/25/23 04:05 BP 129/83 08/25/23 04:05 Pulse Ox 97 08/25/23 04:05 O2 Del Method Room Air 08/25/23 04:05 BMI result Body Mass Index 28.1 VITAL SIGNS: Reviewed. GENERAL: Well developed, well nourished, in no acute distress. HEAD: Normocephalic/atraumatic EYES: OD- PERRLA, EOMI intact without pain, no nystagmus/pallor/icterus noted; OS-PERRLA, EOMI, significant conjunctival injection with swelling of both the upper and lower eye Fluorescein demonstrates a corneal abrasion LUNGS: Normal breath sounds. No adventitious sounds or accessory muscle use. SpO2<97> CARDIOVASCULAR: Regular rate and rhythm without noted murmurs ABDOMEN: Soft, non-tender, non-distended with bowel sounds. MUSCULOSKELETAL: No tenderness, deformities, or effusions noted on gross inspection. EXTREMITIES: No cyanosis, clubbing or edema. SKIN: Inspection of the skin reveals no rashes NEUROLOGIC: Alert and oriented x 4. Strength and sensation to light touch were grossly intact x 4. Medications Administered Discontinued Medications Generic Name Dose Route Start Last Admin Trade Name Jonahq PRN Reason Stop Dose Admin Fluorescein Sodium 1 strip 08/25/23 05:06 08/25/23 05:17 Fluorescein Sodium Strip EYE-LEFT 08/25/23 05:07 1 strip ONCE ONE Administration Tetracaine HCl 1 drop 08/25/23 05:06 08/25/23 05:17 Tetracaine Hcl/Pf 0.5% Oph Stefany 4 Ml Drops EYE-LEFT 08/25/23 05:07 1 drop ONCE ONE Administration Medical Decision Making Medical Decision Making MDM Narrative: 22-year-old male with history and clinical presentation most suggestive corneal abrasion with iritis. Initially tetracaine was applied to the eye and followed fluorescein and evaluation under the Wood's lamp that demonstrated the corneal abrasion, patient appears to have component of iritis, received erythromycin here in the emergency room and was discharged with remaining course. He was also instructed to purchase himself a set of safety goggles as this is the 4th time in 6 months that patient has had injury to the cornea of his eye. He was also strongly encouraged to follow-up with an government operations consultant/optical effects layout person. Differential Diagnosis Differential Diagnoses: The differential diagnosis associated with the presentation includes Please see the discussion above Admission/Observation Consideration of admission/observation: Escalation of care including admission/observation considered Please see the discussion above Discharge Plan Discharge Clinical Impression: Corneal abrasion, Acute iritis Patient Disposition: Home, Self-Care Instructions: Iritis (ED), Corneal Abrasion (ED) Additional Instructions: 1. Complete the course antibiotics for your eye 2. Please follow-up with a government operations consultant and/or optical effects layout person. Return to ER for any worsening symptoms. Prescriptions: New erythromycin 5 mg/gram (0.5 %) ointment 0.5 inch ophthalmic (eye) QID 7 Days Qty: 3.5 0RF No Action prednisone 20 mg tablet 20 mg PO DAILY 7 Days Qty: 7 0RF fluticasone propionate [Flovent HFA] 110 mcg/actuation HFA aerosol inhaler 2 puff inhalation BID fluticasone propionate 50 mcg/actuation spray,suspension intranasal albuterol sulfate [Ventolin HFA] 90 mcg/actuation HFA aerosol inhaler 0 mcg inhalation (DME) Familia Ahuja [facility] Spacer See Rx Instructions .ROUTE DIRECTED Qty: 1 Rx Instructions: As directed Referrals: Ish Baig [Physician] - Stand Alone Forms: Work/School Release
[2023-08-25] MEDS: Erythromycin Base 0.5% Oph Oin 1 GM TUBE 1 CM EYE-LEFT (06:02)
== END 2023-08-25 06:16 | disposition home or self-care (01) ==
PROVIDERS: Emergency Provider Student in an Organized Health Care Education/Training Program
DX: S05.02XA Injury of conjunctiva and corneal abrasion without foreign body, left eye, initial encounter (principal); X58.XXXA Exposure to other specified factors, initial encounter; Y93.9 Activity, unspecified; Y92.9 Unspecified place or not applicable; Y99.9 Unspecified external cause status; H57.12 Ocular pain, left eye; H20.9 Unspecified iridocyclitis
CPT/HCPCS: 99283

== ENCOUNTER 2023-10-24 00:32 | Emergency (ER) | payer OTHER, SELFPAY ==
--- NOTE | 2023-10-24 | ECG_ITS ---
Test Reason : SOB Blood Pressure : / mmHG Vent. Rate : 077 BPM Atrial Rate : 077 BPM P-R Int : 140 ms QRS Dur : 088 ms QT Int : 344 ms P-R-T Axes : 026 074 052 degrees QTc Int : 389 ms Sinus rhythm with marked sinus arrhythmia Otherwise normal ECG When compared with ECG of 08-AUG-2022 19:13, No significant change was found Referred By: Generic ED Physician Electronically Signed By:SUJIT DURAN
[2023-10-24 01:01] VITALS: BP 144/91; PULSE 84; RESP 16; TEMP 36.8; O2SAT 98; BMI 28.1
[2023-10-24 01:43] LABS: COVID-19 Test Negative (Negative); IDNOW Serial# 08D9AD1C; IDNOW Serial# 152EDE1D; Influenza A Negative (Negative); Influenza B2 Negative (Negative)
[2023-10-24 02:14] VITALS: BP 144/89; PULSE 71; RESP 16; TEMP 36.8; O2SAT 999
--- NOTE | 2023-10-24 02:17 | ED.GENADULT ---
HPI - General Adult General Chief complaint: General Medical Stated complaint: SOB, Dizzy Time Seen by Provider: 10/24/23 02:03 Source: patient Mode of arrival: ambulatory Limitations: no limitations History of Present Illness HPI narrative: Patient with anxiety comes here for mid chest pain for few days with history of same in the past feel anxious blurred vision prior to arrival now feels better back to normal Related Data Home Medications Medication Instructions Recorded Confirmed albuterol sulfate 90 mcg/actuation 0 mcg inhalation 09/30/22 09/30/22 aerosol inhaler (Ventolin HFA) fluticasone propionate 110 2 puff inhalation BID 09/30/22 09/30/22 mcg/actuation HFA aerosol inhaler (Flovent HFA) fluticasone propionate 50 spray intranasal 09/30/22 09/30/22 mcg/actuation nasal spray,suspension inhalational spacing device #1 ea 09/30/22 09/30/22 (Familia Leigha [facility] spacer) Previous Rx's Medication Instructions Recorded prednisone 20 mg tablet 20 mg PO DAILY 7 days #7 tabs 08/08/22 erythromycin 5 mg/gram (0.5 %) eye 0.5 inch ophthalmic (eye) QID 7 08/25/23 ointment days #3.5 grams hydroxyzine HCl 50 mg tablet 50 mg PO BEDTIME PRN Sleep/anxiety 10/24/23 #30 tabs omeprazole 40 mg capsule,delayed 40 mg PO DAILY #30 caps 10/24/23 release sucralfate 1 gram tablet 1 g PO BID #60 tabs 10/24/23 Allergies Allergy/AdvReac Type Severity Reaction Status Date / Time No Known Allergies Allergy Verified 10/24/23 01:00 [No Known Allergies*] Review of Systems Review of Systems: Yes all other systems are reviewed and are negative [facility] Family History Family History Mother No problems noted. Father Hypertension Social History Social History Alcohol intake: current Alcohol intake frequency: holidays/special occasions only Patient Tobacco Use Status: Current everyday Tobacco user Tobacco use type: Cigarette Cigarettes Per Day: 1 Advance Directives: No Advance Directives Information Provided: No Physical Exam ED Vital Signs: Vital Signs - 24 hr 10/24/23 01:01 10/24/23 02:14 Temperature 98.2 F 98.2 F Pulse Rate 84 71 Respiratory Rate 16 16 Blood Pressure 144/91 H 144/89 H Pulse Oximetry 98 999 H Oxygen Delivery Method Room Air Room Air BMI result Body Mass Index 28.1 Appearance: Alert. Oriented X3. No acute distress. Anxious ENT: Pharynx normal. Oral Mucosa moist Neck: Normal inspection. Neck supple. CVS: Normal heart rate and rhythm. Pulses normal. Respiratory: No respiratory distress. Equal air entry bilateral, no wheezing/rales/rhonchi Abdomen: Soft and mild epigastric tenderness Bowel sounds are present, Skin: Skin warm and dry. Normal skin color. Normal skin turgor. Extremities: No lower extremity edema. No calf tenderness Neuro: Oriented X 3. Medications Administered Discontinued Medications Generic Name Dose Route Start Last Admin Trade Name Freq PRN Reason Stop Dose Admin Al Hydroxide/Mg Hydroxide 30 ml 10/24/23 02:17 10/24/23 02:25 Magnesium Hydrox/Alum Hydrox 30 Ml Oral.Susp PO 10/24/23 02:18 30 ml ONCE ONE Administration Omeprazole 40 mg 10/24/23 02:17 10/24/23 02:25 Omeprazole 40 Mg Capsule.Dr PO 10/24/23 02:18 40 mg ONCE ONE Administration Medical Decision Making Medical Decision Making [facility] Narrative: Patient is Ativan atypical chest pain and symptoms likely from anxiety patient had echo done last year which was no low risk for ACS does have a gastritis history with pain getting worse when he eats something will give him Prilosec and sucralfate Lab Data [facility] Lab Attestation statement: I reviewed the patient's lab results. Labs: Lab Results 10/24/23 Range/Units 01:14 COVID-19 (GLEN) Negative (Negative) COVID-19 Clin Com See Note Influenza Type A (PETE) Negative (Negative) Influenza Type B (PETE) Negative (Negative) Influenza A & B Note See Note Independent Interpretation I performed an independent interpretation of an: EKG Interpretation: Normal sinus rhythm heart rate 77 beats per minute normal interval normal axis no acute ST T wave changes no acute ischemia Discharge Plan Discharge Clinical Impression: Anxiety, Chest pain due to GERD Patient Disposition: Home, Self-Care Instructions: Gastroesophageal Reflux Disease (ED), Anxiety (ED) Additional Instructions: Take medication to relax and sleep as prescribed Prilosec for acid reflux Sucralfate 2 times a day Avoid fried food Follow with PCP Prescriptions: New omeprazole 40 mg capsule,delayed release(DR/EC) 40 mg PO DAILY Qty: 30 0RF sucralfate 1 gram tablet 1 g PO BID Qty: 60 0RF hydroxyzine HCl 50 mg tablet 50 mg PO BEDTIME PRN (Reason: Sleep/anxiety) Qty: 30 0RF No Action prednisone 20 mg tablet 20 mg PO DAILY 7 Days Qty: 7 0RF erythromycin 5 mg/gram (0.5 %) ointment 0.5 inch ophthalmic (eye) QID 7 Days Qty: 3.5 0RF fluticasone propionate [Flovent HFA] 110 mcg/actuation HFA aerosol inhaler 2 puff inhalation BID fluticasone propionate 50 mcg/actuation spray,suspension intranasal albuterol sulfate [Ventolin HFA] 90 mcg/actuation HFA aerosol inhaler 0 mcg inhalation (DME) Familia Ahuja [facility] Spacer See Rx Instructions .ROUTE DIRECTED Qty: 1 Rx Instructions: As directed
[2023-10-24] MEDS: Magnesium Hydrox/Alum Hydrox 30 ML ORAL.SUSP PO (02:25)
[2023-10-24] MEDS: Omeprazole 40 MG CAPSULE.DR PO (02:25)
== END 2023-10-24 02:31 | disposition home or self-care (01) ==
PROVIDERS: Emergency Provider Internal Medicine
DX: K21.9 Gastro-esophageal reflux disease without esophagitis (principal); R07.89 Other chest pain; F41.9 Anxiety disorder, unspecified; R06.02 Shortness of breath; R42 Dizziness and giddiness; Z11.52 Encounter for screening for COVID-19; Z79.899 Other long term (current) drug therapy
CPT/HCPCS: 87502; 87635; 93005; 99283; 99284

== ENCOUNTER → 2023-10-24 01:06 | Outpatient (BNV) | payer OTHER, SELFPAY | PROVIDERS: Emergency Provider Internal Medicine; Visit Provider Internal Medicine | DX: I49.8 Other specified cardiac arrhythmias (principal) | CPT/HCPCS: 93010 ==